=== PATIENT | male | born 1970 | race Caucasian/White ===

== ENCOUNTER 2018-06-03 18:15 | Emergency (ER) | payer OTHER ==
[~2018-06-03] VITALS: Ht 180.3 cm; Wt 150.0 kg
[2018-06-03] MEDS ORDERED: SODIUM CHLORIDE 0.9% 1,000 ML IV ONE (18:29)
[2018-06-03] MEDS ORDERED: ONDANSETRON HCL 4MG/2ML INJ IV STA (18:29)
[2018-06-03] MEDS ORDERED: FAMOTIDINE 20MG/2ML VIAL IV ONE (18:30)
[2018-06-03] MEDS ORDERED: LORAZEPAM 2MG/ML CPJ IV ONE (18:30)
[2018-06-03 19:15] LABS: CHLORIDE 98 mEq/L (98-107)
[2018-06-03 19:17] LABS: INR 1.1; PARTIAL THROMBOPLASTIN TIME 22.9 sec (23.4-31.0); PROTHROMBIN TIME 10.9 sec (9.6-11.0)
[2018-06-03 19:19] LABS: ETHANOL BLOOD < 10 mg/dL
[2018-06-03 20:06] LABS: *BARBITURATES SCREEN URINE NEGATIVE (NEGATIVE)
[2018-06-03 20:07] LABS: *AMPHETAMINES SCREEN URINE NEGATIVE (NEGATIVE); *COCAINE SCREEN URINE NEGATIVE (NEGATIVE); METHADONE URINE SCREEN NEGATIVE (NEGATIVE); OPIATES URINE SCREEN NEGATIVE (NEGATIVE); PHENCYCLIDINE URINE SCREEN NEGATIVE (NEGATIVE)
[2018-06-03 20:08] LABS: CANNABINOID URINE SCREEN PRESUMTIVE POSITIVE (NEGATIVE)
[2018-06-03 20:10] LABS: *BENZODIAZEPINES SCREEN URINE NEGATIVE (NEGATIVE)
[2018-06-03 20:15] LABS: BASOPHILS % 0.4 % (0.0-2.0); EOSINOPHILS % 0.1 % (0.0-5.0); HEMATOCRIT. 46.3 % (42.0-52.0); HEMOGLOBIN. 16.1 g/dL (14.0-18.0); LYMPHOCYTES % 17.5 % (20.0-50.0); MEAN CORPUSCULAR HEMOGLOBIN 33.2 pg (28.0-32.0); MEAN CORPUSCULAR VOLUME 95.7 fL (80.0-94.0); MEAN PLATELET VOLUME 8.2 fl (7.4-10.4); MONOCYTES % 6.3 % (2.0-8.0); NEUTROPHILS % 75.7 % (40.0-76.0); PLATELET 344 x1000/uL (130-400); RED BLOOD CELL COUNT 4.84 mill/uL (4.7-6.1); RED CELL DISTRIBUTION WIDTH 13.2 % (11.6-14.6)
[2018-06-04 00:34] VITALS: BP 140/97
== END 2018-06-04 00:34 | disposition home or self-care (01) ==
LOC: ER 18:15
DX: R10.0 Acute abdomen (principal); R07.89 Other chest pain; R11.10 Vomiting, unspecified; F41.1 Generalized anxiety disorder; F43.0 Acute stress reaction; I10 Essential (primary) hypertension; E11.9 Type 2 diabetes mellitus without complications; Z95.0 Presence of cardiac pacemaker
CPT/HCPCS: 36415; 71045; 74176; 80053; 80305; 80320; 83690; 83880; 84484; 85025; 85610; 85730; 93005; 96361; 96374; 96375; 99284; J2060; J2405; J3490; J7030; G0480